=== PATIENT | male | born 1960 | race Caucasian/White ===

== ENCOUNTER 2018-03-02 14:18 | Emergency (ER) | payer OTHER ==
[2018-03-02] MEDS ORDERED: ASPIRIN 81 MG CHEWABLE TABLETS PO ONE (14:25)
[2018-03-02] MEDS ORDERED: ASPIRIN 81 MG CHEWABLE TABLETS ONE (14:25)
[2018-03-02] MEDS ORDERED: CLOPIDOGREL BISULFATE 300 MG TABLET ONE (14:25)
[2018-03-02] MEDS ORDERED: ATORVASTATIN CA 80 MG TABLET (FP) ONE (14:26)
[2018-03-02 14:27] VITALS: BMI 31.3
[2018-03-02 14:35] LABS: BASO % 0.8 % (0-2.0); EOS % 0.4 % (0-4.5); HEMATOCRIT 44.6 % (35.4-49); HEMOGLOBIN 14.8 GM/dL (11.7-16.9); MCH 28.4 pg (25.7-33.7); MCHC 33.3 g/dl (32.0-35.9); MEAN CELL VOLUME 85.3 fl (80-96); MEAN PLT VOLUME 7.3 fl (7.5-11.1); NEUT % 70.8 % (42.8-82.8); PLATELET COUNT 404 K/MM3 (134-434); RBC 5.22 M/mm3 (4.00-5.60); WHITE BLOOD COUNT 16.6 K/mm3 (4.0-10.0)
[2018-03-02] MEDS ORDERED: HEPARIN NA (PORCINE) 5,000 UNITS/ML 1ML VIAL IVPUSH PRN (14:37)
[2018-03-02 14:46] LABS: INR 1.14 (0.83-1.09); PROTHROMBIN TIME (PATIENT) 12.9 SEC (9.7-13.0)
[2018-03-02] MEDS ORDERED: NOREPINEPHRINE BITARTRATE 4 MG/4 ML ML IV ONE (14:52)
[2018-03-02 14:55] LABS: ALBUMIN 4.2 g/dl (3.4-5.0); ANION GAP 14 MMOL/L (8-16); BILIRUBIN,TOTAL 0.8 mg/dL (0.2-1.0); BLOOD UREA NITROGEN 25 mg/dL (7-18); CALCIUM 9.5 mg/dL (8.5-10.1); CHLORIDE 101 mmol/L (98-107); CO2 21 mmol/L (21-32); CREATININE 1.9 mg/dL (0.55-1.3); GLUCOSE,RANDOM 283 mg/dL (74-106); SGPT/ALT 61 U/L (13-61); SODIUM 136 mmol/L (136-145); TOT PROT 8.5 g/dl (6.4-8.2)
[2018-03-02 14:58] LABS: ALK PHOS 133 U/L (45-117); N-TERMINAL BNP 1005.47 pg/ml (5-125)
[2018-03-02 15:03] LABS: MAGNESIUM 2.1 mg/dL (1.8-2.4); POTASSIUM 5.9 mmol/L (3.5-5.1); SGOT/AST 56 U/L (15-37)
[2018-03-02 15:05] VITALS: TEMP 98.3
--- NOTE | 2018-03-02 15:13 | PDOC ---
History of Present Illness <Laura Silva - Last Filed: 03/02/18 15:51> - General History Source: Patient, Spouse, Old Records Exam Limitations: Language Barrier (Pt is Com[place] speaking only. Member of staff provided interpretation.) <Estrada Anne - Last Filed: 03/02/18 19:23> - General Chief Complaint: Chest Pain Stated Complaint: CHEST PAIN, WEAKNESS Time Seen by Provider: 03/02/18 14:24 - History of Present Illness Initial Comments: 57 y/o male presenting to [facility] ER via private auto complaining of chest pain and global weakness. Symptoms started approx. 1 hour prior to arrival while he was driving to work. Denies LOC. Medical Hx: - CAD s/p CABG estimated 15 years ago - HTN - DM Surgical Hx: - CABG - Cholecystectomy (Estrada Anne) Past History <Laura Silva - Last Filed: 03/02/18 15:51> - Past Medical History Cardiac Disorders: Yes COPD: No Diabetes: Yes HTN: Yes Hypercholesterolemia: Yes Kidney Stones: Yes - Surgical History Cardiac Surgery: Yes (tripple bypass) Cholecystectomy: Yes - Suicide/Smoking/Psychosocial Hx Smoking History: Never smoked Hx Alcohol Use: No Drug/Substance Use Hx: No Substance Use Type: None <Estrada Anne - Last Filed: 03/02/18 19:23> - Past Medical History Allergies/Adverse Reactions: Allergies Allergy/AdvReac Type Severity Reaction Status Date / Time No Known Allergies Allergy Verified 03/02/18 14:27 Home Medications: Ambulatory Orders Atorvastatin Ca [Lipitor -] 40 mg PO HS 06/27/15 Metoprolol Succinate [Toprol Xl] 12.5 mg PO DAILY 06/27/15 Aspirin [Aspirin EC] 81 mg PO DAILY 03/02/18 Losartan Potassium [Cozaar -] 25 mg PO DAILY 03/02/18 Metformin HCl [Metformin HCl ER] 500 mg PO DAILY 03/02/18 Review of Systems - Review of Systems Able to Perform ROS?: No (Pt condition.) <Estrada Anne - Last Filed: 03/02/18 19:23> *Physical Exam <Laura Silva - Last Filed: 03/02/18 15:51> <Estrada Anne - Last Filed: 03/02/18 19:23> - Vital Signs Last Vital Signs Temp Pulse Resp BP Pulse Ox 98.3 F 120 H 34 H 109/81 97 03/02/18 15:04 03/02/18 15:08 03/02/18 15:08 03/02/18 15:08 03/02/18 15:08 - Physical Exam Comments: Constitutional: Well-developed, well-nourished male in acute distress. Found sitting upright in car seat, assisted into wheelchair and then into hospital bed. Alert and oriented x4. Answered all questions appropriately and completely. Speech was non-labored, non-pressured. [place] speaking only. HEENT: Normocephalic. No obvious external signs of trauma. Hearing grossly normal. No nasal discharge. Neck is supple, trachea is midline. Cardiovascular: Tachycardic rate and regular rhythm. No murmur, rubs, clicks, or gallops. Peripheral pulses: Radial pulses full. Respiratory: Breathing unlabored. Equal chest rise and fall. Clear to auscultation bilaterally. No stridor, no wheezing, no rhonchi. Abd: Soft, nontender, nondistended. Neuro: Alert and oriented. Moving all four extremities spontaneously. Skin: Diaphoretic and pale. Psych: Affect: appropriate. Mood: concerned. (Estrada Anne) ED Treatment Course - LABORATORY CBC & Chemistry Diagram: 03/02/18 14:28 03/02/18 14:28 <Laura Silva - Last Filed: 03/02/18 15:51> - LABORATORY CBC & Chemistry Diagram: 03/02/18 14:28 03/02/18 14:28 <Estrada Anne - Last Filed: 03/02/18 19:23> - ADDITIONAL ORDERS Additional order review: Laboratory Results 03/02/18 03/02/18 03/02/18 14:28 14:28 14:23 PT with INR 12.90 INR 1.14 H Sodium 136 Potassium 5.9 H Chloride 101 Carbon Dioxide 21 Anion Gap 14 BUN 25 H Creatinine 1.9 H Creat Clearance w eGFR 36.72 POC Glucometer [phone] Random Glucose 283 H Calcium 9.5 Magnesium 2.1 Total Bilirubin 0.8 AST 56 H ALT 61 Alkaline Phosphatase 133 H Creatine Kinase 408 H Creatine Kinase Index 1.2 CK-MB (CK-2) 5.14 H Troponin I 0.18 H* B-Natriuretic Peptide 1005.47 H Total Protein 8.5 H Albumin 4.2 03/02/18 03/02/18 14:28 14:23 RBC 5.22 MCV 85.3 MCHC 33.3 RDW 14.0 MPV 7.3 L Neutrophils % 70.8 D Lymphocytes % 23.0 D Monocytes % 5.0 Eosinophils % 0.4 D Basophils % 0.8 POC Glucometer 299.36663 - RADIOLOGY Radiology Studies Ordered: Category Date Time Status CHEST X-RAY PORTABLE* [RAD] Stat Radiology 03/02/18 14:25 Completed - Medications Given in the ED: ED Medications Discontinued Medications Generic Name Dose Route Start Last Admin Trade Name Freq PRN Reason Stop Dose Admin Aspirin 324 mg 03/02/18 14:25 03/02/18 14:28 Asa - PO 03/02/18 14:26 324 mg ONCE ONE Administration Aspirin 300 mg 03/02/18 15:49 03/02/18 14:50 Asa - ID 03/02/18 15:50 300 mg ONCE ONE Administration Heparin Sodium (Porcine) 5,000 unit 03/02/18 14:37 03/02/18 14:50 Heparin - IVPUSH 5,000 unit PRN PRN Administration Heparin Heparin Sodium/Dextrose 25,000 units in 500 mls @ 20 mls/hr 03/02/18 16:00 15:55 Heparin Infusion - IVPB 1,000 units/hr TITR EVER 20 mls/hr Administration Protocol 1,000 UNITS/HR Ondansetron HCl 4 mg 03/02/18 15:49 03/02/18 14:50 Zofran Injection IVPUSH 03/02/18 15:50 4 mg ONCE ONE Administration Medical Decision Making <Laura Silva - Last Filed: 03/02/18 15:51> <Estrada Anne - Last Filed: 03/02/18 19:23> - Medical Decision Making *Reviewed vital signs, nursing notes, and prior visit documentation (if available). 57 y/o male complaining of chest pain and generalized weakness x1 hr. H/o CAD s/ p CABG 15 years ago. Afebrile. Vitals remarkable for tachycardia and tachypnea. Physical exam revealed diaphoresis and clammy skin. Strength 5/5 globally. ACS protocol ordered. Initial EKG: Sinus tachycardia with ventricular rate of 128. ST segment elevation in aVR and depression in II, V1, V2, V3, V4, V5, and V6. Concerning for left main coronary artery disease. [facility] contacted and Dr. Plata (cards fellow) agreed to accept transfer for Dr. Purvis of cardiology service. 324 ASA administered PO, but pt vomited shortly after administration. 300 ASA subsequently administered ID. Nitro withheld as pt rated pain 3/10 and systolic BP found to trend in the low 100s. Pt developed hypoxia to high 80s. Pt placed on 15 LPM oxygen via NRB. SP02 subsequently raised to 99%. Anticoagulated with heparin bolus. Pt care transferred to [facility] ALS transfer team after they were verbally apprised of the HPI and pts current condition. (Estrada Anne) *DC/Admit/Observation/Transfer <Laura Silva - Last Filed: 03/02/18 15:51> <Estrada Anne - Last Filed: 03/02/18 19:23> Diagnosis at time of Disposition: ST elevation (STEMI) myocardial infarction Qualifiers: Involved coronary artery: unspecified coronary artery Qualified Code(s): I21.3 - ST elevation (STEMI) myocardial infarction of unspecified site - Discharge Dispostion Disposition: TRANSFER ACUTE CARE/OTHER HOSP Condition at time of disposition: Critical - Referrals Referrals: Betsey Carrasquillo MD [Primary Care Provider] -
[2018-03-02 15:35] VITALS: BP 109/81; PULSE 120
--- NOTE | 2018-03-02 15:40 | PDOC ---
Attending Attestation - Resident Resident Name: Estrada Anne - ED Attending Attestation I have performed the following: I have examined & evaluated the patient, The case was reviewed & discussed with the resident, I agree w/resident's findings & plan, Exceptions are as noted - HPI HPI: 03/02/18 15:30 57yo M hx CABG 14yrs ago, HTN, NIDDM, HL presents to the ED with crushing 10/10 sternal CP for 1 hour. Pain began while pt was driving to work. Pt then went home and drove him to hospital. +diaphoresis, nausea. In ED, pt tachycardic to 130s, hypoxic to 93%, tachypneic to 30s, with BP 100/78. Pt appears uncomfortable. No recent travel or immobility. No cancer hx. Pt states this feels like pain he had when he had CABG. No fevers, chills, cough. No abd pain. No radiation of pain. Pt is a never smoker. Denies drug use. Denies etoh use. - Physicial Exam PE: 03/02/18 15:33 GENERAL: Awake, alert, and fully oriented, uncomfortable, diaphoretic HEAD: No signs of trauma EYES: PERRLA, EOMI, sclera anicteric, conjunctiva clear ENT: Oropharynx clear without exudates. Moist mucosa NECK: Normal ROM, supple, no lymphadenopathy, JVD, or masses LUNGS: Tachypneic, shallow breathing, breath sounds equal. No wheezes or crackles HEART: Tachy to 130s but regular, no murmurs ABDOMEN: Soft, nontender, normoactive bowel sounds. No guarding, no rebound. No masses EXTREMITIES: Normal range of motion, b/l 2+ radial and DP pulses, equal. BP equal b/l NEUROLOGICAL: Normal speech, cranial nerves intact, negative pronator drift, 5/ 5 strength in all 4 extremities, normal sensation to light touch in all 4 extremities, normal cerebellar exam, normal tone SKIN: Warm, Dry, normal turgor, no rashes or lesions noted. Bedside US with no pericardial effusion - Critical Care Time Total Critical Care Time: 60 Critical Care Statement: The care of this patient involved high complexity decision making to prevent further life threatening deterioration of the patient 's condition and/or to evaluate & treat vital organ system(s) failure or risk of failure. - Medical Decision Making 03/02/18 15:40 57yo M hx CABG presents to the ED with STEMI but also hypotension concerning for cardiogenic shock. Pads placed, ASA given PO, after vomiting, was given NV. BP remained stable btwn 90s-100s systolic. Case discussed with [facility] Dr. Caceres ( cards fellow), recommended heparin bolus and holding off on plavix. Pt accepted by Dr. Purvis. Rpt EKG with increased ANTON. EKG pattern consistent with L main disease vs significant 3 vessel disease. Pt transported with ALS to [facility]. Heart Score/ECG Review #1 03/02/18 14:20 Twelve-lead EKG was performed and reviewed by me. Sinus tachycardia, rate 128. Normal axis. ST elevations in aVR and aVL with significant reciprocal ST depressions in 2, 3, aVF, V1 through V6 #2 03/02/18 15:43 Twelve-lead EKG was performed and reviewed by me. Compared to previous EKG, sinus, rate 129, ST elevations and depressions are much more significant.
[2018-03-02] MEDS ORDERED: ONDANSETRON 4 MG/2 ML VIAL IVPUSH ONE (15:49)
[2018-03-02] MEDS ORDERED: ASPIRIN 300 MG SUPP.RECT PR ONE (15:49)
[2018-03-02] MEDS ORDERED: HEPARIN INFUSION - 25,000 UNITS/500 ML INFUS.BAG IVPB SCH (16:00)
--- NOTE | 2018-03-03 21:33 | EKG ---
Test Reason : Blood Pressure : / mmHG Vent. Rate : 129 BPM Atrial Rate : 131 BPM P-R Int : 000 ms QRS Dur : 130 ms QT Int : 352 ms P-R-T Axes : 000 085 250 degrees QTc Int : 515 ms SINUS TACHYCARDIA WITH PREMATURE VENTRICULAR COMPLEXES OR FUSION COMPLEXES NON-SPECIFIC INTRA-VENTRICULAR CONDUCTION BLOCK MARKED T WAVE ABNORMALITY, CONSIDER INFERIOR ISCHEMIA MARKED T WAVE ABNORMALITY, CONSIDER ANTEROLATERAL ISCHEMIA ABNORMAL ECG WHEN COMPARED WITH ECG OF 27-JUN-2015 19:58, FUSION COMPLEXES ARE NOW PRESENT PREMATURE VENTRICULAR COMPLEXES ARE NOW PRESENT VENT. RATE HAS INCREASED BY 59 BPM QUESTIONABLE CHANGE IN QRS DURATION Confirmed by KRISTINE SUN MD ([id number]) on 03/03/2018 9:33:13 PM Referred By: Confirmed By:KRISTINE SUN MD
== END 2018-03-02 15:20 | disposition short-term general hospital (02) ==
LOC: JER 14:18
PROC: 3E033GC Introduction of Other Therapeutic Substance into Peripheral Vein, Percutaneous Approach (ICD-10-PCS; principal; 2018-03-02)
PROC: 3E033GC Introduction of Other Therapeutic Substance into Peripheral Vein, Percutaneous Approach (ICD-10-PCS; 2018-03-02)
DX: I21.3 ST elevation (STEMI) myocardial infarction of unspecified site (principal); I25.10 Atherosclerotic heart disease of native coronary artery without angina pectoris; Z95.1 Presence of aortocoronary bypass graft; Z95.5 Presence of coronary angioplasty implant and graft; I10 Essential (primary) hypertension; E78.00 Pure hypercholesterolemia, unspecified; E11.9 Type 2 diabetes mellitus without complications; Z79.84 Long term (current) use of oral hypoglycemic drugs
CPT/HCPCS: 71045-TC-FY; 80053; 82550; 82553; 82962; 83735; 83880; 84484; 85025; 85610; 93005; 93010; 96365; 96375; 96376; 99285-25; J1644